=== PATIENT | male | born 1990 | race Caucasian/White ===

== ENCOUNTER 2020-08-03 04:43 | Emergency (ER) | payer BC ==
[~2020-08-03] VITALS: Ht 167.6 cm; Wt 81.6 kg
== END 2020-08-03 05:11 | disposition home or self-care (01) ==
LOC: ED 04:43
PROC: 09C3XZZ Extirpation of Matter from Right External Auditory Canal, External Approach (ICD-10-PCS; principal; 2020-08-03)
DX: T16.1XXA Foreign body in right ear, initial encounter (principal); F17.200 Nicotine dependence, unspecified, uncomplicated; W45.8XXA Other foreign body or object entering through skin, initial encounter
CPT/HCPCS: 69200; 99282-25